=== PATIENT | male | born 1990 | race Caucasian/White ===

== ENCOUNTER 2018-03-11 17:55 | Emergency (ER) | payer BC, OTHER ==
[2018-03-11] MEDS ORDERED: LIDOCAINE 1% (MDV) 10 ML INJ INFIL (18:26)
[2018-03-11 18:35] LABS: URINE PH (Dip) POC 5.5 (5.0-8.5)
[2018-03-11 18:35] LABS: URINE BLOOD (Dip) POC 2+ (NEGATIVE); URINE GLUCOSE (Dip) POC Negative (NEGATIVE); URINE KETONES (Dip) POC Trace (NEGATIVE); URINE LEUKOCYTE EST (Dip) POC Negative (NEGATIVE); URINE NITRITE (Dip) POC Negative (NEGATIVE); URINE TOTAL PROTEIN POC Trace (NEGATIVE)
[2018-03-11] MEDS: AZITHROMYCIN 250 MG TAB PO (18:39)
[2018-03-11] MEDS: CEFTRIAXONE 250 MG INJ IM (18:40)
[2018-03-11] MEDS: LIDOCAINE 1% (MDV) 20 ML INJ INFIL (18:46)
[2018-03-11] MEDS: LIDOCAINE 1% (MDV) 20 ML INJ SC (18:47)
== END 2018-03-11 19:35 | disposition home or self-care (01) ==
LOC: FTE 17:55
DX: Z20.2 Contact with and (suspected) exposure to infections with a predominantly sexual mode of transmission (principal); F17.210 Nicotine dependence, cigarettes, uncomplicated
CPT/HCPCS: 81003; 87591; 96372; 99284-25